=== PATIENT | female | born 1980 | race Caucasian/White ===

== ENCOUNTER 2020-01-07 17:33 | Emergency (ER) | payer SELFPAY ==
[~2020-01-07] VITALS: Ht 162.6 cm; Wt 68.0 kg
--- NOTE | 2020-01-07 17:52 | NUR ---
NO ANSWER FOR TRIAGE AT THIS TIME
== END 2020-01-07 18:43 | disposition left against medical advice (07) ==
LOC: ER 17:33
DX: E86.0 Dehydration (principal)